=== PATIENT | female | born 1995 | race Caucasian/White ===

== ENCOUNTER 2020-02-11 20:04 | Emergency (ER) | payer OTHER ==
[~2020-02-11] VITALS: Ht 175.3 cm; Wt 64.9 kg
[2020-02-11 21:18] LABS: BASOPHILS 0.7 % (0.0-2.0); EOSINOPHILS 2.4 % (0.0-3.0); HEMATOCRIT 39.4 % (37.0-47.0); HEMOGLOBIN 13.4 gm/dL (12.0-15.0); LYMPHOCYTES 33.1 % (24.0-44.0); MCH 30.2 pg (26.0-34.0); MCHC 33.9 g/dL (28.0-37.0); MCV 88.9 fL (80.0-100.0); MONOCYTES 5.4 % (1.0-8.0); PLATELET COUNT 330 thou/uL (150-400); POLYS 58.4 % (36.0-66.0); RBC 4.43 mil/uL (4.20-5.00); RDW 13.9 % (10.5-14.5); WBC 10.2 thou/uL (4.0-11.0)
[2020-02-11 21:26] LABS: CREATININE 0.6 mg/dL (0.6-1.0); MAGNESIUM 2.1 mg/dL (1.8-2.4); POTASSIUM 3.5 mmol/L (3.5-5.1)
[2020-02-11 22:14] LABS: URINE BILIRUBIN NEGATIVE (Negative); URINE BLOOD NEGATIVE (Negative); URINE CLARITY CLEAR; URINE COLOR YELLOW; URINE GLUCOSE-RANDOM* NEGATIVE (Negative); URINE KETONES NEGATIVE (Negative); URINE LEUKOCYTES-REFLEX NEGATIVE (Negative); URINE NITRITE-REFLEX NEGATIVE (Negative); URINE PROTEIN (DIPSTICK) NEGATIVE (Negative); URINE SPECIFIC GRAVITY <= 1.005 (1.005-1.035); URINE UROBILINOGEN 0.2 E.U./dl (0.2-1.0)
[2020-02-12 02:20] VITALS: BP 93/54
--- NOTE | 2020-02-12 11:08 | EKG ---
[facility] [place] [address] ELECTROCARDIOGRAM REPORT Name: KELLY GOFF Room #: DEP [facility].#: [id number] Admission: 02/11/20 Attend Phys: Discharge: 02/12/20 Date of : [birth year] Report #: [id number] THIS REPORT FOR: cc: FAM - Amanda family physician/PCP FAM - Amanda family physician/PCP Cristian Cates MD ~ THIS REPORT FOR: //name// [facility] ED Test Date: 2020-02-11 Test Time: 21:19:19 Pat Name: KELLY GOFF Department: Room: Gender: F [employer] Marketing Associate: NO : 1995 Requested By: Aurelio Gabriel Order Number: [id number] MD: Cristian Cates Measurements Intervals [place] Rate: 88 P: 17 WI: 159 QRS: 24 QRSD: 84 T: 40 QT: 366 QTc: 443 Interpretive Statements Sinus rhythm ST elev, probable normal early repol pattern No previous ECG available for comparison Electronically Signed On 02-12-2020 11:07:06 CDT by Cristian Cates [email or web address] <ELECTRONICALLY SIGNED> By: Cristian Cates MD 02/12/20 1107 18 18 Cristian Cates MD /YOANA
== END 2020-02-12 02:20 | disposition home or self-care (01) ==
LOC: ER 20:04
PROVIDERS: Emergency Medicine
DX: R06.02 Shortness of breath (principal); F10.129 Alcohol abuse with intoxication, unspecified; E86.0 Dehydration; F17.210 Nicotine dependence, cigarettes, uncomplicated; Y90.9 Presence of alcohol in blood, level not specified